=== PATIENT | female | born 1970 | race Hispanic/Latino ===

== ENCOUNTER → 2019-08-22 | Outpatient (CLI) | payer OTHER | LOC: MAMMO 12:28 | PROVIDERS: ATTEND Internal Medicine | DX: Z12.31 Encounter for screening mammogram for malignant neoplasm of breast (principal) | CPT/HCPCS: 77067 ==

== ENCOUNTER → 2021-04-16 | Outpatient (CLI) | payer BC | LOC: MAMMO 08:39 | PROVIDERS: ATTEND Internal Medicine | DX: Z12.31 Encounter for screening mammogram for malignant neoplasm of breast (principal) | CPT/HCPCS: 77067 ==